=== PATIENT | male | born 1995 | race Caucasian/White ===

== ENCOUNTER 2016-09-03 10:06 | Emergency (ER) | payer OTHER ==
[2016-09-03 10:35] VITALS: TEMP 97.7
--- NOTE | 2016-09-03 11:28 | RAD ---
EXAM DESCRIPTION: Chest,1 View CLINICAL HISTORY: CHEST PAIN COMPARISON: November 22, 2014 IMPRESSION: Single AP portable upright view of the chest shows cardiac silhouette and pulmonary vasculature to be within normal limits. Lungs are normally aerated and clear. No obvious pleural effusion or pneumothorax is seen. Electronically signed by: Juan Daniel Kyle MD 09/03/2016 11:28 AM CDT
[2016-09-03] MEDS ORDERED: SODIUM CHLORIDE 0.9% 1000ML 1,000 ML IVS ONE ×2 (11:36→13:29)
[2016-09-03] MEDS ORDERED: INSULIN, REG.(HUMAN) 100 U/ML VIAL SUBCU ONE (11:37)
--- NOTE | 2016-09-03 12:39 | ED.PDOC ---
History of Present Illness - General Chief Complaint: Cardiovascular Problem Stated Complaint: chest discomfort Time Seen by Provider: 09/03/16 10:58 Source: patient, RN notes reviewed - History of Present Illness Initial Comments: THIS IS A 21 YEAR OLD TYPE ONE DIABETIC THAT PRESENTS TO THE ED WITH PLEURITIC CHEST PAIN 06/05 THAT STARTED YESTERDAY, NO RADIATION AND NO ASSOCIATED SYMPTOMS. HE STS THAT IT FEELS LIKE SOMEONE IS STABBING HIM WITH A STICK. DENIES ANY VOMITING, DIARRHEA OR FEVER. Severity: mild Improving Factors: nothing Worsening Factors: nothing Associated Symptoms: denies symptoms Allergies/Adverse Reactions: Allergies NO KNOWN ALLERGY Allergy (Verified 01/16/16 09:39) Home Medications: Ambulatory Orders Insulin Glargine [Lantus Solostar] 32 unit SC BEDTIME 11/25/13 Insulin Lispro [Humalog] 0 u SUBCU ACHS #0 pen 03/13/15 Basaglar Kwikpen 0 mg DAILY 09/03/16 Pristiq 0 mg DAILY 09/03/16 Review of Systems - Review of Systems Constitutional: States: no symptoms reported EENTM: States: no symptoms reported Respiratory: Denies: cough, orthopnea Cardiology: States: chest pain. Denies: edema, palpitations Gastrointestinal/Abdominal: States: no symptoms reported Genitourinary: States: no symptoms reported Musculoskeletal: States: other - CHEST PAIN Skin: States: no symptoms reported Neurological: States: no symptoms reported Endocrine: States: no symptoms reported Hematologic/Lymphatic: States: no symptoms reported Past Medical History (General) - Patient Medical History Hx Seizures: No Hx Stroke: No Hx Dementia: No Hx Asthma: No Hx of COPD: No Hx Cardiac Disorders: No Hx Congestive Heart Failure: No Hx Pacemaker: No Hx Hypertension: No Hx Thyroid Disease: No Hx Diabetes: Yes - TYPE I DIABETES Hx Gastroesophageal Reflux: No Hx Renal Disease: No Hx Cancer: No Hx of HIV: No Hx Hepatitis C: No Hx MRSA: No MRSA Source:: Blood Surgical History: no surgical history - Vaccination History Hx Tetanus, Diphtheria Vaccination: No Hx Influenza Vaccination: No Hx Pneumococcal Vaccination: No - Social History Hx Tobacco Use: No Hx Chewing Tobacco Use: No Hx Alcohol Use: Yes - occasionally Hx Substance Use: No Hx Substance Use Treatment: No Hx Depression: No Hx Physical Abuse: No Hx Emotional Abuse: No Hx Suspected Abuse: No - Female History Patient is a Female of Child Bearing Age (10 -59 yrs old): No Patient : No Family Medical History - Family History Father Living Status: Still Living Hx Family Hypertension: Yes Hx Family Cancer: Yes Hx Family;Other: hx of elevated cholestrol Mother Living Status: Still Living Hx Family;Other: hx of anxiety Physical Exam - Physical Exam General Appearance: Alert, Anxious Eye Exam: bilateral normal Ears, Nose, Throat: hearing grossly normal Neck: non-tender Respiratory: lungs clear, normal breath sounds Cardiovascular/Chest: normal peripheral pulses, regular rate, rhythm, no edema, no gallop, no JVD, no murmur Peripheral Pulses: radial,right: 2+, radial,left: 2+, femoral,right: 2+, femoral ,left: 2+ Gastrointestinal/Abdominal: normal bowel sounds, non tender, soft, no organomegaly, no pulsatile mass Back Exam: normal inspection Extremity: normal range of motion Neurologic: no motor/sensory deficits, alert, normal mood/affect, oriented x 3 Skin Exam: normal color Lymphatic: no adenopathy Progress - Progress Progress: 09/03/16 13:00 THE LAB IS REPORTED: THE CBC IS NORMAL. THE GLUCOSE IS 601 AND THE CO2 OF 12. SQ INSULIN AND FLUIDS HAVE BEEN STARTED. THE ABG'S ARE ALSO REPORTED AND THE PH IS 7.21, PCO2 OF 24, EXCESS BASE OF -17. EKG W/O ANY INJURY PATTERN AND THE CXR IS NEGATIVE FOR ACUTE PROCESS. I WILL DISCUSS THE CASE WITH MR. AC, PATIENT NEEDS HYDRATION AND GLUCOSE CONTROL. - EKG/XRAY/CT Comments: HR OF 99, [place] INTERVAL OF 124, QRS OF 90, QTC OF 441AND AXIS OF 64. IMPRESS Departure - Departure Clinical Impression: Diabetic ketoacidosis associated with type 1 diabetes mellitus Qualifiers: Diabetes mellitus complication detail: without coma Qualified Code(s): E10.10 - Type 1 diabetes mellitus with ketoacidosis without coma Time of Disposition: 13:08 Disposition: Admit Patient Condition: Good Departure Forms: ED Discharge - Pt. Copy, Patient Portal Self Enrollment Referrals: Leroy Salinas MD [Primary Care Provider] - 1-2 Weeks Home Medications: Ambulatory Orders Insulin Glargine [Lantus Solostar] 32 unit SC BEDTIME 11/25/13 Insulin Lispro [Humalog] 0 u SUBCU ACHS #0 pen 03/13/15 Basaglar Kwikpen 0 mg DAILY 09/03/16 Pristiq 0 mg DAILY 09/03/16
[2016-09-03] MEDS ORDERED: SODIUM CHL 0.9% 250ML (AVIVA) 250 ML IVPB ONE (13:25)
[2016-09-03] MEDS ORDERED: INSULIN, REG.(HUMAN) 100 U/ML VIAL ONE (13:25)
[2016-09-03] MEDS ORDERED: INSULIN, REG.(HUMAN) 250 UNITS in SODIUM CHL 0.9% 250ML (AVIVA) 247.5 ML IVPB SCH ×2 (14:00)
[2016-09-03 14:21] VITALS: O2SAT 99
[2016-09-03 14:23] VITALS: BP 110/59
== END 2016-09-03 14:20 | disposition left against medical advice (07) ==
LOC: ER 10:06
DX: E10.10 Type 1 diabetes mellitus with ketoacidosis without coma (principal); Z79.4 Long term (current) use of insulin; Z79.899 Other long term (current) drug therapy
CPT/HCPCS: 36415; 36416; 36600; 71010; 80053; 82009; 82803; 82805; 82948; 85025; 93005; J7030

== ENCOUNTER 2019-03-21 07:27 | Observation (INO) | payer OTHER ==
[2019-03-21] MEDS ORDERED: SODIUM CHLORIDE 0.9% 1000ML 1,000 ML IVS ONE ×3 (07:48→18:38)
[2019-03-21] MEDS ORDERED: ACETAMINOPHEN 325 MG TAB PO ONE (07:48)
--- NOTE | 2019-03-21 07:51 | ED.PDOC ---
History of Present Illness - General Chief Complaint: General Stated Complaint: flu-like sx Time Seen by Provider: 03/21/19 07:46 Additional Information: Patient is a 24-year-old male who presents to the ED with chief complaint of flulike symptoms for 2 days. Patient indicates he feels generally weak with muscle aches and has had subjective fevers and chills for the past 2 days. Patient with an occasional nonproductive, dry cough. Patient denies chest pain but does say he is having palpitations/fast heart rate. Patient is a type 1 insulin-dependent diabetic who is compliant with his medication. Patient has a decreased appetite but indicates he has been taking ample amounts of water patient denies nausea, vomiting, abdominal pain, shortness of breath, chest pain. Patient is otherwise asymptomatic with no other complaints. - History of Present Illness Allergies/Adverse Reactions: Allergies NO KNOWN ALLERGY Allergy (Verified 01/16/16 09:39) Home Medications: Ambulatory Orders Insulin Lispro [Humalog] 0 u SUBCU ACHS #0 pen 03/13/15 Basaglar Kwikpen 22 units SUBCU BEDTIME 09/03/16 Review of Systems - Review of Systems Constitutional: States: chills, fever, malaise, weakness EENTM: Denies: ear pain, nose congestion, throat pain Respiratory: States: cough. Denies: orthopnea, short of breath, wheezing Cardiology: States: palpitations. Denies: chest pain, syncope Gastrointestinal/Abdominal: Denies: abdominal pain, diarrhea, nausea, vomiting Genitourinary: States: no symptoms reported. Denies: dysuria Musculoskeletal: States: muscle pain. Denies: neck pain Skin: Denies: rash Neurological: States: no symptoms reported Endocrine: States: no symptoms reported Hematologic/Lymphatic: States: no symptoms reported All other Systems: Reviewed and Negative Past Medical History (General) - Patient Medical History Hx Seizures: No Hx Stroke: No Hx Dementia: No Hx Asthma: No Hx of COPD: No Hx Cardiac Disorders: No Hx Congestive Heart Failure: No Hx Pacemaker: No Hx Hypertension: No Hx Thyroid Disease: No Hx Diabetes: Yes Hx Gastroesophageal Reflux: No Hx Renal Disease: No Hx Cancer: No Hx of HIV: No Hx Hepatitis C: No Hx MRSA: No MRSA Source:: Blood Surgical History: no surgical history - Vaccination History Hx Tetanus, Diphtheria Vaccination: No Hx Influenza Vaccination: No Hx Pneumococcal Vaccination: No - Social History Hx Tobacco Use: No Hx Chewing Tobacco Use: No Hx Alcohol Use: Yes - occasionally Hx Substance Use: No Hx Substance Use Treatment: No Hx Depression: No Hx Physical Abuse: No Hx Emotional Abuse: No Hx Suspected Abuse: No - Female History Patient : No Family Medical History - Family History Father Living Status: Still Living Hx Family Hypertension: Yes Hx Family Cancer: Yes Hx Family;Other: hx of elevated cholestrol Mother Living Status: Still Living Hx Family;Other: hx of anxiety Physical Exam - Physical Exam General Appearance: Comfortable, No apparent distress, Ill Appearing - generally weak Ears, Nose, Throat: normal ENT inspection, normal pharynx Neck: non-tender, full range of motion, supple, normal inspection Respiratory: chest non-tender, lungs clear, normal breath sounds, no respiratory distress, no accessory muscle use Cardiovascular/Chest: normal peripheral pulses, no edema, no gallop, no JVD, no murmur, tachycardia Gastrointestinal/Abdominal: normal bowel sounds, non tender, soft, no organomegaly Back Exam: normal inspection, no CVA tenderness, no vertebral tenderness Extremity: normal range of motion, non-tender, normal inspection, no pedal edema Neurologic: stamp clerk II-XII nml as tested, no motor/sensory deficits, alert, normal mood/affect, oriented x 3 Skin Exam: normal color, warm/dry Lymphatic: no adenopathy Progress - Progress Progress: 03/21/19 07:53 Patient's differential diagnosis includes but is not limited to pneumonia, bronchitis, influenza, DKA 03/21/19 08:10 EKG:EKG read: sinus tach, rate 130, nl axis, nl QRS, nl ST segments, non- specific T wave changes. Negative STEMI. EKG read by Sherman Salinas MD. 03/21/19 09:59 Patient is feeling slightly better status post IV fluids. His influenza positive and he has been given Tamiflu. Patient's WBC is normal but his lactate is elevated at 4.1 and patient has been cultured and IV antibiotics begun. Patient's chest x-ray is clear and he does not have pneumonia presently. Patient's glucose is normal but he does have an anion gap acidosis which is being addressed with IV fluids. I discussed patient with Dr. Oksana Bass who accepts patient for admission. She requested that an ABG be drawn. Patient is comfortable and stable at this time. - Results/Orders Results/Orders: 03/21/19 07:47 IV:Start .ONCE 03/21/19 08:00 EKG STAT 03/21/19 09:30 LACTIC ACID Stat 03/21/19 09:53 ABG [Arterial Blood Gas] Stat 03/21/19 09:54 MAGNESIUM Stat KCl 20Meq/Water For Inj 100Ml [Potassium 20meq in Water 100ml] 20 meq Premix Bag 1 bag IVPB ONCE 03/21/19 09:55 BLOOD CULTURE Stat Laboratory Results WBC 5.9 K/mm3 (4.8-10.8) 03/21/19 08:05 RBC 4.73 M/mm3 (4.70-6.10) 03/21/19 08:05 Hgb 15.3 gm/dL (14.0-18.0) 03/21/19 08:05 Hct 45.7 % (42.0-52.0) 03/21/19 08:05 MCV 96.7 fl (80.0-94.0) H 03/21/19 08:05 MCH 32.4 pg (27.0-31.0) H 03/21/19 08:05 MCHC 33.5 g/dL (33.0-37.0) 03/21/19 08:05 RDW 11.7 % (11.5-14.5) 03/21/19 08:05 Plt Count 164 K/mm3 (130-400) 03/21/19 08:05 MPV 7.9 fl (7.40-10.4) 03/21/19 08:05 Absolute Neuts (auto) 4.70 K/uL (1.8-6.8) 03/21/19 08:05 Absolute Lymphs (auto) 0.50 K/uL (1.0-3.4) L 03/21/19 08:05 Absolute Monos (auto) 0.70 K/uL (0.2-0.8) 03/21/19 08:05 Absolute Eos (auto) 0.00 K/uL (0.0-0.4) 03/21/19 08:05 Absolute Basos (auto) 0.00 K/uL (0.0-0.1) 03/21/19 08:05 Neutrophils % 79.0 % (42.0-78.0) H 03/21/19 08:05 Lymphocytes % 8.6 % (20.0-50.0) L 03/21/19 08:05 Monocytes % 12.0 % (2.0-9.0) H 03/21/19 08:05 Eosinophils % 0.1 % (1.0-5.0) L 03/21/19 08:05 Basophils % 0.3 % (0.0-2.0) 03/21/19 08:05 Sodium 133 mmol/L (135-145) L 03/21/19 08:05 Potassium 3.2 mmol/L (3.6-5.0) L 03/21/19 08:05 Chloride 98 mmol/L (101-111) L 03/21/19 08:05 Carbon Dioxide 13 mmol/L (21-31) L* 03/21/19 08:05 Anion Gap 25.2 (12-18) H 03/21/19 08:05 BUN 9 mg/dL (7-18) 03/21/19 08:05 Creatinine 1.36 mg/dL (0.6-1.3) H 03/21/19 08:05 BUN/Creatinine Ratio 6.6 (10-20) L 03/21/19 08:05 Random Glucose 134 mg/dL (70-105) H 03/21/19 08:05 Serum Osmolality 267.0 mOsm/L (275-295) L 03/21/19 08:05 Lactic Acid 4.1 mmol/L (0.5-2.2) H* 03/21/19 08:05 Calcium 8.7 mg/dL (8.4-10.2) 03/21/19 08:05 Total Bilirubin 2.0 mg/dL (0.2-1.0) H 03/21/19 08:05 AST 102 IU/L (10-42) H 03/21/19 08:05 ALT 53 IU/L (10-60) 03/21/19 08:05 Alkaline Phosphatase 70 IU/L (42-121) 03/21/19 08:05 Serum Total Protein 7.5 gm/dL (6.4-8.2) 03/21/19 08:05 Albumin 4.1 g/dl (3.2-5.5) 03/21/19 08:05 Globulin 3.4 gm/dL (2.3-3.5) 03/21/19 08:05 Albumin/Globulin Ratio 1.2 (1.1-1.9) 03/21/19 08:05 Departure - Departure Clinical Impression: Influenza B, Severe sepsis without septic shock Diabetes mellitus Qualifiers: Diabetes mellitus type: type 1 Diabetes mellitus complication status: without complication Qualified Code(s): E10.9 - Type 1 diabetes mellitus without complications Time of Disposition: 09:58 Disposition: Admit Patient Home Medications: Ambulatory Orders Insulin Lispro [Humalog] 0 u SUBCU ACHS #0 pen 03/13/15 Basaglar Kwikpen 22 units SUBCU BEDTIME 09/03/16 Critical Care Note - Critical Care Note Total Time (mins): 30 Decision To Admit - Decistion To Admit Decision to Admit Reason: Admit from ER Decision to Admit Date: 03/21/19 Decision to Admit Time: 09:58
--- NOTE | 2019-03-21 08:16 | RAD ---
EXAM DESCRIPTION: Chest,1 View CLINICAL HISTORY: 24 years Male, cough COMPARISON: September 03, 2016 TECHNIQUE: AP portable chest. FINDINGS: Fair expansion of the lungs is evident without consolidation, layering effusion, or large mass. Heart size and vascularity appear normal for AP technique and degree of inspiration. No gross bony, hilar, or mediastinal abnormalities are noted. IMPRESSION: Normal chest, one view Electronically signed by: Tadeo Carter MD 03/21/2019 8:15 AM HOSPICE NURSE
[2019-03-21] MEDS ORDERED: PIPERACILLIN/TAZOBACTAM 3.375 GM in SODIUM CHLORIDE 0.9% 100ML 100 ML IVPB ONE (08:42)
[2019-03-21] MEDS ORDERED: PIPERACILLIN/TAZOBACTAM 3.375 GM VIAL IVPB ONE (08:58)
[2019-03-21] MEDS ORDERED: SODIUM CHLORIDE 0.9% 100ML 100 ML IVPB ONE (08:58)
[2019-03-21] MEDS ORDERED: KCL 20MEQ/WATER FOR INJ 100ML 20 MEQ in PREMIX BAG 1 BAG IVPB ONE (09:54)
[2019-03-21] MEDS ORDERED: OSELTAMIVIR 75 MG CAP PO ONE ×2 (09:56→10:24)
[2019-03-21] MEDS ORDERED: KCL 20MEQ/WATER FOR INJ 100ML 100 ML IVPB ONE (09:58)
--- NOTE | 2019-03-21 10:25 | HP ---
SUPERVISING PHYSICIAN: Raza Lau MD CHIEF COMPLAINT: Flu-like symptoms. HISTORY OF PRESENT ILLNESS: This is a 24-year-old male who presented to the Emergency Room with complaints of flu-like symptoms that started approximately 2 days ago. During the night, he woke up several times with muscle aches, subjective fever and chills. He also had a dry, hacky cough. His symptoms worsened and he was afraid that his diabetes would get out of control as he is a type 1 diabetic and was diagnosed at the age of 10. He denied any chest pain or shortness of breath, no nausea or vomiting, but his throat hurt and he had aches and pains all over. In the Emergency Room, his initial vital signs were temperature 99.5. Heart rate 130, blood pressure 126/73, respiratory rate 20, O2 saturation 96% on room air. Laboratory was done and his WBCs were 5.9 with hemoglobin 15.3, hematocrit 45.7. He has a left shift on his differential. His sodium was slightly low at 133 with potassium 3.2, chloride 98, carbon dioxide 13, anion gap 25.2, BUN 9, creatinine 1.36. Glucose 134, lactic acid 4.1, total bilirubin 2, AST 102, magnesium 1.7. The patient tested positive for influenza B, negative for influenza A. Blood cultures were drawn. He was given some Zosyn as well as some fluids. He did say that he had strep throat although there was no testing done in our hospital. I was called for hospital admission for sepsis as well as influenza and metabolic acidosis secondary to infectious process plus type 1 diabetes. PAST MEDICAL HISTORY: 1. Diabetes, type 1. He was diagnosed when he was 10. PAST SURGICAL HISTORY: None. CURRENT MEDICATIONS: 1. Basaglar 22 units at bedtime with sliding scale insulin before meals and at bedtime. ALLERGIES: NO KNOWN DRUG ALLERGIES. FAMILY HISTORY: Positive for hypertension and diabetes. SOCIAL HISTORY: He lives in [place]. He is single. He works at [employer]. He denies any tobacco or illicit drug use. He does drink alcohol rarely on social occasions. REVIEW OF SYSTEMS: GENERAL: Positive for fatigue, fever, malaise, weakness. HEENT: Negative for ear pain, vision changes, ear pain, sinus symptoms. Positive for sore throat. RESPIRATORY: Positive for dry cough. Negative for wheezing or dyspnea. CARDIAC: Positive for palpitations. Negative for chest pain tachycardia. GASTROINTESTINAL: Negative for nausea, vomiting, diarrhea, constipation. GENITOURINARY: Positive for polyuria. Negative for hematuria, dysuria. MUSCULOSKELETAL: Positive for myalgias. Negative for back pain or arthralgias. Negative for arthralgias, myalgias. SKIN: Negative for lesions or rashes. NEUROLOGIC: Negative for headache, weakness or seizures. PHYSICAL EXAMINATION: VITAL SIGNS: Temperature 98.5. Heart rate 108. Blood pressure 116/61. Respiratory rate 16. O2 saturation 97% on room air. GENERAL: This is a 24-year-old slender male patient lying in his hospital bed. He is in no acute distress. HEENT: Normocephalic, atraumatic. Pupils are equal and reactive. Oropharynx is clear. His posterior pharynx is erythematous with some post nasal drip. NECK: Supple without mass. RESPIRATORY: Essentially clear to auscultation bilaterally. CHEST: There is equal rise and fall of the chest with inspiration and expiration. CARDIOVASCULAR: Regular rate and rhythm. GASTROINTESTINAL: Abdomen is soft, nondistended, nontender. Bowel sounds are positive. NEUROLOGIC: Awake, alert and oriented times three. Cranial nerves II-XII are grossly intact as tested. SKIN: Warm and dry. LYMPHATIC: No cervical lymphadenopathy noted. LABORATORY: His followup lactic acid after fluids was 1.3. His glucose after being in the hospital is 231. His blood gas showed a pCO2 35, pO2 89, bicarb 17.5, ABG 7.3, O2 saturation 97%. Blood cultures were drawn. Chest x-ray per radiologic interpretation showed normal chest, one view. All other labs and films have been reviewed via the EMR. IMPRESSION: 1. Systemic inflammatory response syndrome, mostly likely secondary to influenza. He has an elevated heart rate as well as elevated temperature. 2. Diabetes mellitus, type 1, on insulin therapy. 3. Metabolic acidosis. 4. Influenza, type B. PLAN: The patient has been placed in observation. We will continue to hydrate him overnight. He will do his own sliding scale insulin before meals and bedtime blood sugar checks. I have also continued him on Zosyn as they did in the Emergency Room and he will be discharged no Augmentin. Hopefully he can be well hydrated and we will check his labs this afternoon as well as in the morning and he can be discharged home in stable condition. I have also done a throat swab. We will continue to monitor the patient closely and follow as needed. #[id number] [facility]
[2019-03-21] MEDS ORDERED: MAGNESIUM SULFATE PREMIX 2GM 2 GM in PREMIX BAG 1 BAG IVPB ONE (11:15)
[2019-03-21] MEDS ORDERED: ONDANSETRON INJ 4 MG/2 ML VIAL IV PRN (11:32)
[2019-03-21] MEDS ORDERED: SODIUM CHLORIDE 0.9% (FLUSH) 10 ML SYG IV PRN (11:32)
[2019-03-21] MEDS ORDERED: DEXTROSE 10% 500ML IVPB PRN (11:32)
[2019-03-21] MEDS ORDERED: GLUCAGON INJ 1 MG VIAL SUBCU PRN (11:32)
[2019-03-21] MEDS ORDERED: IV SET AND CAP CHANGE INJ INJ SCH (12:00)
[2019-03-21] MEDS ORDERED: MAGNESIUM SULFATE PREMIX 2GM 50 ML IVPB ONE (13:15)
[2019-03-21] MEDS: BENZOCAINE-MENTH LOZ (CEPACOL) 1 EA LOZ MT PRN ×2 (13:24→17:06)
[2019-03-21] MEDS: KCL 20 MEQ/NS 1,000 ML IVS PRN ×2 (14:50→23:06)
[2019-03-21] MEDS: INSULIN LISPRO 100 UNITS/ML PEN SUBCU SCH ×2 (16:39→22:12)
[2019-03-21] MEDS: ACETAMINOPHEN 325 MG TAB PO PRN (17:54)
[2019-03-21] MEDS ORDERED: INSULIN GLARGINE SUBCU SCH (21:00)
[2019-03-21] MEDS: SODIUM CHLORIDE 0.9% (FLUSH) 10 ML SYG IV SCH (22:13)
[2019-03-22] MEDS: ACETAMINOPHEN 325 MG TAB PO PRN (05:04)
[2019-03-22] MEDS: KCL 20 MEQ/NS 1,000 ML IVS PRN (06:51)
[2019-03-22] MEDS: INSULIN LISPRO 100 UNITS/ML PEN SUBCU SCH ×2 (08:35→11:24)
[2019-03-22] MEDS ORDERED: SODIUM CHLORIDE 0.9% 1000ML 1,000 ML IVS ONE (09:35)
[2019-03-22] MEDS ORDERED: POTASSIUM CHLORIDE 20 MEQ TAB PO ONE (09:36)
[2019-03-22] MEDS: SODIUM CHLORIDE 0.9% (FLUSH) 10 ML SYG IV SCH (09:47)
[2019-03-22 10:02] VITALS: BP 105/69; TEMP 98.5
[2019-03-22] MEDS ORDERED: OSELTAMIVIR 75 MG CAP PO SCH (11:00)
[2019-03-22 12:09] VITALS: O2SAT 98
--- NOTE | 2019-03-23 08:18 | DS ---
SUPERVISING PHYSICIAN: Raza Lau MD DISCHARGE DIAGNOSIS: 1. Systemic inflammatory response syndrome, mostly likely secondary to influenza. He had an elevated heart rate as well as elevated temperature. 2. Diabetes mellitus, type 1, on insulin therapy. 3. Metabolic acidosis. 4. Influenza, type B. HISTORY OF PRESENT ILLNESS: This is a 24-year-old male who presented to the Emergency Room with complaints of flu-like symptoms that started approximately 2 days ago. During the night prior to his admission, he woke up several times with muscle aches, subjective fever and chills. He also had a dry, hacky cough. His symptoms worsened and he was afraid that his diabetes would get out of control as he is a type 1 diabetic and was diagnosed at the age of 10. He denied any chest pain or shortness of breath, no nausea or vomiting, but his throat hurt and he had aches and pains all over. In the Emergency Room, his initial vital signs were temperature 99.5, but he had taken some Tylenol prior to coming. Heart rate 130, blood pressure 126/73, respiratory rate 20, O2 saturation 96% on room air. Laboratory was done and his WBCs were 5.9 with hemoglobin 15.3, hematocrit 45.7. He had a left shift on his differential. His sodium was slightly low at 133 with potassium 3.2, chloride 98, carbon dioxide 13, anion gap 25.2, BUN 9, creatinine 1.36. Glucose 134, lactic acid 4.1, total bilirubin 2, AST 102, magnesium 1.7. The patient tested positive for influenza B, negative for influenza A. Blood cultures were drawn. He also was told it looked like he had strep throat, although a strep swab was not done. He was given Zosyn as well as several liters of fluids. I was called for hospital admission. HOSPITAL COURSE: The patient was placed in observation and aggressively given fluids. His heart rate continued to be in the one-teens to 120s and he required several boluses of IV fluids. He is a very well controlled type 1 diabetic and he was allowed to give his own insulin based on his typical dosing and his blood sugars were well controlled while he was in the hospital. He was given some Tamiflu as well as continued on the Zosyn. Initially, he received some antiemetics for his nausea, but those symptoms subsided. Today, his heart rate is in the 80s to 90s and his symptoms have improved. All his symptoms have subsided and he feels much better. He feels well hydrated. His oral mucous membranes are moist. He will be discharged home today in stable condition. LABORATORY: His followup CBC showed white count 4,000 with hemoglobin 12.9, hematocrit 37.9. Differential was normal. Today, sodium 134, potassium 3.5. Blood glucose has ranged between 71 and 159. After he was admitted to the hospital, he did have a strep swab and it was negative. His preliminary blood cultures show no growth after 24 hours and his throat culture is pending. RADIOLOGY: Chest x-ray showed normal chest, one view. DISCHARGE PLAN: The patient will be discharged home in stable condition. He is to resume his previous diet as well as increase his activity as tolerated. He is to continue his home medications with the addition of Augmentin as well as Tamiflu. He is to followup with his primary care provider, Dr. Leroy Salinas, within the next 1 to 2 weeks. He is to return to the hospital or followup with Dr. Salinas for any problems or complications. DISCHARGE MEDICATIONS: 1. Humalog. 2. Basaglar Kwikpen. 3. Augmentin. 4. Tamiflu. #[id number] [facility]
== END 2019-03-22 12:15 | disposition home or self-care (01) ==
LOC: ER 07:27 → MS 10:23
PROVIDERS: ADMIT Nurse Practitioner Acute Care; ATTEND Nurse Practitioner Acute Care
DX: J10.89 Influenza due to other identified influenza virus with other manifestations (principal); E10.9 Type 1 diabetes mellitus without complications; E87.2 Acidosis; E87.1 Hypo-osmolality and hyponatremia; R00.0 Tachycardia, unspecified; R50.81 Fever presenting with conditions classified elsewhere; Z79.4 Long term (current) use of insulin; Z88.3 Allergy status to other anti-infective agents; Z82.49 Family history of ischemic heart disease and other diseases of the circulatory system
CPT/HCPCS: 96361; 96366 ×2; 96367; 96365; 96372; J2543; J7030 ×4; J3475; J3480 ×4; J7050; 80048 ×2; 80053; 82948 ×7; 87880; 36415 ×4; 85025 ×2; 87040 ×2; 83735 ×2; 87070; 36416 ×4; 83605 ×2; 71045; 94760 ×3; 82803; 36600; 82805; 99285; 93005; G0378; 87502

== ENCOUNTER 2020-05-29 20:19 | Emergency (ER) | payer OTHER, SELFPAY ==
[2020-05-29] MEDS: CLINDAMYCIN IV 600MG 600 MG in PREMIX BAG 1 BAG IVPB ONE (21:04)
[2020-05-29] MEDS ORDERED: PLAIN PACKING STRIP 1/2 1 EA BTTL TOP ONE (21:49)
[2020-05-29] MEDS ORDERED: LIDOCAINE 1% 10 ML VIAL INJ ONE (21:50)
--- NOTE | 2020-05-29 22:20 | ED.PDOC ---
History of Present Illness - General Chief Complaint: Skin/Abrasion/Tear Stated Complaint: right dixon abcess Time Seen by Provider: 05/29/20 20:39 Source: patient, RN notes reviewed, Vital Signs reviewed, family - mother Exam Limitations: no limitations - History of Present Illness Initial Comments: Patient is a 25-year-old white male who presents with complaints of right dixon swelling and redness. 3 to 4 days ago there was a pimple and he popped it and squeezed it and since that time he has had worsening redness swelling and pain. The pain is throbbing in nature. It is moderate in intensity. It does not radiate. Nothing makes it better. It is worse with palpation or if he bumps the dixon. This lesion is on his right dixon. Patient is a type I diabetic. He states that he has been out of his insulin strips and his sliding scale insulin for months. A friend of his gave him a bottle of long-acting insulin he has been taking that at night. Patient does not remember when his last hemoglobin A1c was taken nor does he remember when he had it. Timing/Duration: constant, getting worse, other - 3 to 4 days Severity: moderate Location: extremities - Right dixon Improving Factors: nothing Worsening Factors: other - Palpation or movement Associated Symptoms: denies symptoms Allergies/Adverse Reactions: Allergies NO KNOWN ALLERGY Allergy (Verified 05/29/20 20:36) Home Medications: Ambulatory Orders Insulin Lispro [Humalog] 0 u SUBCU ACHS #0 pen 03/13/15 Basaglar Kwikpen 22 units SUBCU BEDTIME 09/03/16 Amoxicillin & Pot Clavulanate [Augmentin Tab] 875 mg PO BID #20 tab 03/21/19 Oseltamivir Capsule [Tamiflu] 75 mg PO BID #8 cap 03/22/19 Clindamycin HCl [Cleocin] 300 mg PO Q6H #40 capsule 05/29/20 Insulin Regular (Human) [Humulin R] 10 unit IJ AC #1 bottle 05/29/20 Review of Systems - Review of Systems Constitutional: States: no symptoms reported, see HPI. Denies: chills, fever, malaise, weakness EENTM: States: no symptoms reported. Denies: eye pain, blurred vision, double vision, throat pain Respiratory: States: no symptoms reported. Denies: cough, short of breath, stridor, wheezing Cardiology: States: no symptoms reported. Denies: chest pain, palpitations, syncope Gastrointestinal/Abdominal: States: no symptoms reported. Denies: abdominal pain, diarrhea, nausea, vomiting Genitourinary: States: no symptoms reported. Denies: dysuria, frequency Musculoskeletal: States: other - Swelling of the right dixon. Skin: States: see HPI, lesions - Right mid dixon. Neurological: States: no symptoms reported. Denies: tingling, tremors, weakness Endocrine: States: increased hunger, increased thirst, increased urine Hematologic/Lymphatic: States: no symptoms reported. Denies: blood clots, easy bleeding All other Systems: No Change from Baseline Past Medical History (General) - Patient Medical History Hx Seizures: No Hx Stroke: No Hx Dementia: No Hx Asthma: No Hx of COPD: No Hx Cardiac Disorders: No Hx Congestive Heart Failure: No Hx Pacemaker: No Hx Hypertension: No Hx Thyroid Disease: No Hx Diabetes: Yes Hx Gastroesophageal Reflux: No Hx Renal Disease: No Hx Cancer: No Hx of HIV: No Hx Hepatitis C: No Hx MRSA: No MRSA Source:: Blood Surgical History: no surgical history - Vaccination History Hx Tetanus, Diphtheria Vaccination: No Hx Influenza Vaccination: No Hx Pneumococcal Vaccination: No - Social History Hx Tobacco Use: No Hx Chewing Tobacco Use: No Hx Alcohol Use: Yes - occasionally Hx Substance Use: No Hx Substance Use Treatment: No Hx Depression: No Hx Physical Abuse: No Hx Emotional Abuse: No Hx Suspected Abuse: No - Female History Patient : No Family Medical History - Family History Father Living Status: Still Living Hx Family Hypertension: Yes Hx Family Cancer: Yes Hx Family;Other: hx of elevated cholestrol Mother Living Status: Still Living Hx Family;Other: hx of anxiety Physical Exam - Physical Exam General Appearance: Alert, Comfortable, Well Developed, Well Groomed, Well Hydrated, Well Nourished Eyes, Ears, Nose, Throat Exam: PERRL/EOMI, normal ENT inspection, pharynx normal Neck: non-tender, full range of motion, supple Cardiovascular/Chest: normal peripheral pulses, no edema, no gallop, no JVD, no murmur, tachycardia Respiratory: chest non-tender, lungs clear, normal breath sounds, no respiratory distress, no accessory muscle use Gastrointestinal/Abdominal: normal bowel sounds, non tender, soft, no organomegaly, no pulsatile mass Back Exam: normal inspection, no CVA tenderness Extremity: normal range of motion, no pedal edema, no calf tenderness, normal capillary refill, other - Patient with a 4 cm area of redness and induration with central fluctuance. The area surrounding the fluctuance is red and it is warm to the touch. This is consistent with an abscess. 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 He does have a current fluctuant abscess in the mid dixon on the right leg Skin Character: abscess, erythema, lesion Lymphatic: no adenopathy Progress - Progress Progress: Differential diagnosis: Cellulitis, skin abscess, hyperglycemia, medication noncompliance among others. 05/29/20 22:23 Patient with a hemoglobin A1c of 11.5 and his blood sugar here is 813. Patient was given a liter of fluids, IV antibiotics and 10 of insulin IV. Patient does not want admission because he does not have insurance and cannot afford it. Plan on discharge home with follow-up with the [facility] in 1 to 2 days for wound check and to get him started back on his insulin. I will write for him to have a bottle of regular insulin in the interim. Additionally I will write for the patient have p.o. clindamycin, 300 mg 4 times daily x10 days. I discussed this plan of care with the patient and his mother and they voiced understanding and agreement. Armaan Becker M.D. #[id number] - Results/Orders Results/Orders: 05/29/20 20:39 HEMOGLOBIN A1C Stat 05/29/20 20:50 WOUND CULTURE Stat 05/29/20 22:09 Sodium Chloride 0.9% 1000ML [Ns 1000 ml] 1,000 ml IVS ONCE Laboratory Results - last 24 hr 05/29/20 05/29/20 05/29/20 21:09 21:09 21:09 WBC 7.1 RBC 4.64 L Hgb 14.8 Hct 43.7 MCV 94.1 H MCH 31.9 H MCHC 33.9 RDW 12.0 Plt Count 249 MPV 7.9 Absolute Neuts (auto) 5.10 Absolute Lymphs (auto) 1.40 Absolute Monos (auto) 0.50 Absolute Eos (auto) 0.00 Absolute Basos (auto) 0.00 Neutrophils % 72.0 Lymphocytes % 19.4 L Monocytes % 7.6 Eosinophils % 0.5 L Basophils % 0.5 Sodium 127 L Potassium 5.0 Chloride 88 L Carbon Dioxide 26 Anion Gap 18.0 BUN 15 Creatinine 1.02 BUN/Creatinine Ratio 14.7 Random Glucose 813 H* Hemoglobin A1c 11.5 H Serum Osmolality Not Reportable Calcium 9.1 Total Bilirubin 0.9 AST 40 ALT 38 Alkaline Phosphatase 71 Serum Total Protein 7.3 Albumin 4.0 Globulin 3.3 Albumin/Globulin Ratio 1.2 Vital Signs 05/29/20 20:26 Temperature 98.5 F Pulse Rate [ 94 H monitor] Respiratory 18 Rate Blood Pressure 146/85 [Right Arm] O2 Sat by Pulse 98 Oximetry Procedures - Incision and Drainage #1 Site: right mid dixon Procedure and Prep: betadine prep, sterile dressings applied, gauze wick placed, wound culture collected, pus drained Blade Size: 11 Procedure Comments: Patient tolerated the procedure without complication or difficulty. Progress: Procedure: I&D of skin abscess Indication: Chin abscess Narrative: After informed consent was obtained from the patient after explanation of the condition, indications and risks and benefits associated with performing or not performing the procedure, patient gave his verbal consent for I&D of his right chin abscess. The area was cleansed with Betadine prep. This dried for 3 minutes between wipes with the Betadine prep x3. Once it finally dry this area was cleaned with chlorhexidine and this was allowed to dry. Area was instilled with 1% lidocaine no epi to get analgesia, approximately 3 mL. The abscess was then incised with a #11 blade. Wound was probed and cultures were obtained. All loculations of the abscess were broken. It was packed with plain gauze, 1/2 inch. Wound was covered with sterile gauze and Kerlix. Patient tolerated the procedure well and there were no complications. Departure - Departure Clinical Impression: Hyperglycemia, Need for prophylactic vaccination against diphtheria, tetanus, acellular pertussis, poliovirus, and hepatitis B virus, Non compliance w medication regimen Abscess of skin and subcutaneous tissue Qualifiers: Site of cutaneous abscess: extremity Site of cutaneous abscess of extremity: lower extremity Laterality: right Qualified Code(s): L02.415 - Cutaneous abscess of right lower limb Cellulitis of lower extremity Qualifiers: Laterality: right Qualified Code(s): L03.115 - Cellulitis of right lower limb Time of Disposition: 22:30 Disposition: Discharge to Home or Self Care Condition: Fair Departure Forms: ED Discharge - Pt. Copy, Patient Portal Self Enrollment Instructions: DI for Abrasion, Abscess Incision and Drainage (DC), Cellulitis (Skin Infection), Adult (DC), Diabetes Type 1, Adult (DC) Diet: diabetic diet Activity: walking as tolerated, no pushing/pulling with affected limb Referrals: Leroy Salinas MD [Primary Care Provider] - 1-2 Days Prescriptions: Clindamycin HCl [Cleocin] 300 mg PO Q6H #40 capsule Insulin Regular (Human) [Humulin R] 10 unit IJ AC #1 bottle Home Medications: Ambulatory Orders Insulin Lispro [Humalog] 0 u SUBCU ACHS #0 pen 03/13/15 Basaglar Kwikpen 22 units SUBCU BEDTIME 09/03/16 Amoxicillin & Pot Clavulanate [Augmentin Tab] 875 mg PO BID #20 tab 03/21/19 Oseltamivir Capsule [Tamiflu] 75 mg PO BID #8 cap 03/22/19 Clindamycin HCl [Cleocin] 300 mg PO Q6H #40 capsule 05/29/20 Insulin Regular (Human) [Humulin R] 10 unit IJ AC #1 bottle 05/29/20 Additional Instructions: Patient to follow-up with the [facility] in 1 to 2 days for wound check and to establish care.
[2020-05-29] MEDS: INSULIN, REG.(HUMAN) 100 U/ML VIAL IV ONE (22:26)
[2020-05-29] MEDS: SODIUM CHLORIDE 0.9% 1000ML 1,000 ML IVS ONE (22:26)
[2020-05-29 23:45] VITALS: O2SAT 97
[2020-05-29 23:47] VITALS: BP 123/72; TEMP 98.2
== END 2020-05-29 23:30 | disposition home or self-care (01) ==
LOC: ER 20:19
DX: L02.415 Cutaneous abscess of right lower limb (principal); E10.65 Type 1 diabetes mellitus with hyperglycemia; Z91.14 Patient's other noncompliance with medication regimen; Z79.4 Long term (current) use of insulin; Z23 Encounter for immunization
CPT/HCPCS: 36415; 80053; 82948; 83036; 85025; 87070; J3490; J7030